=== PATIENT | female | born 1980 | race Asian ===

== ENCOUNTER 2016-10-03 11:21 | Emergency (ER) | payer MEDICAID ==
[~2016-10-03] VITALS: Ht 152.4 cm; Wt 47.0 kg
[~2016-10-03 11:21] MED LIST: DOCU240C31 PO; IBUP200T48 PO; OXYC-302 PO
[2016-10-03] MEDS ORDERED: SODIUM CHLORIDE 0.9% 1,000ML IVBOLUS ONE (12:00)
[2016-10-03] MEDS ORDERED: SODIUM CHLORIDE FLUSH 10ML SYR IVF ONE (12:00)
[2016-10-03] MEDS ORDERED: DIPHENHYDRAMINE 50 MG/ML, 1ML IVPush ONE (12:00)
[2016-10-03] MEDS ORDERED: METOCLOPRAMIDE 5 MG/ML, 2ML IVPush ONE (12:00)
[2016-10-03] MEDS ORDERED: DIPHENHYDRAMINE 50 MG/ML, 1ML ONE (12:22)
[2016-10-03] MEDS ORDERED: METOCLOPRAMIDE 5 MG/ML, 2ML ONE (12:22)
[2016-10-03] MEDS ORDERED: KETOROLAC 30 MG/1 ML ONE (13:41)
[2016-10-03] MEDS ORDERED: HYDROmorphone 1 MG/ML, 1ML ONE (13:41)
[2016-10-03] MEDS ORDERED: KETOROLAC 30 MG/1 ML IVPush ONE (14:00)
[2016-10-03] MEDS ORDERED: HYDROmorphone 1 MG/ML, 1ML IVPush PRN (14:00)
[2016-10-03 14:32] VITALS: BP 87/46
== END 2016-10-03 14:37 | disposition home or self-care (01) ==
LOC: ED 12:50
DX: G43.009 Migraine without aura, not intractable, without status migrainosus (principal); R11.2 Nausea with vomiting, unspecified
CPT/HCPCS: 96361; 96374; 96375; 99284; J1170; J1200; J1885; J2765; J7030